=== PATIENT | female | born 1990 | race Caucasian/White ===

== ENCOUNTER 2017-01-05 18:56 | Emergency (ER) | payer OTHER ==
[~2017-01-05] VITALS: Ht 157.5 cm; Wt 88.6 kg
[2017-01-05 19:51] VITALS: BP 119/86
== END 2017-01-05 19:51 | disposition home or self-care (01) ==
LOC: EME 18:56
DX: S09.8XXA Other specified injuries of head, initial encounter (principal); S80.811A Abrasion, right lower leg, initial encounter; W18.09XA Striking against other object with subsequent fall, initial encounter; Y99.0 Civilian activity done for income or pay; Z87.891 Personal history of nicotine dependence
CPT/HCPCS: 99281; 99283